=== PATIENT | male | born 1960 | race Caucasian/White ===

== ENCOUNTER → 2018-08-19 | Outpatient (CLI) | payer OTHER ==
--- NOTE | 2018-08-19 11:49 | RAD ---
Chest, 2 views, 08/19/2018: HISTORY: Shortness of breath, cough The heart size and pulmonary vascularity are normal. There are coronary artery radiopacities compatible with stents and/or calcifications. The lungs are clear. There is no evidence of pleural fluid. IMPRESSION: No acute cardiopulmonary abnormality is detected. Electronically signed by: Gerard Bhtat MD (08/19/2018 11:45 AM) [facility]
== END | disposition home or self-care (01) ==
LOC: RAD 10:59
PROVIDERS: ATTEND Family Medicine
DX: R06.02 Shortness of breath (principal); R05 Cough
CPT/HCPCS: 71046

== ENCOUNTER → 2019-09-23 | Outpatient (CLI) | payer OTHER ==
[2019-09-23 08:53] LABS: BASO % 1 % (0-3); EOS # 0.1 x10^3/uL (0.0-0.7); EOS % 2 % (0-3); HEMATOCRIT 45.9 % (39.0-53.0); LYMPH # 1.7 x10^3/uL (1.0-4.8); LYMPH % 27 % (24-48); MEAN CORPUSCULAR HEMOGLOBIN 32 pg (25-35); MEAN CORPUSCULAR HGB CONC 35 g/dL (31-37); MEAN CORPUSCULAR VOLUME 90 fL (79-100); MONO # 0.7 x10^3/uL (0.0-1.1); MONO % 11 % (0-9); NEUT # 3.8 x10^3uL (1.8-7.7); NEUT % 60 % (31-73); PLATELET COUNT 250 x10^3/uL (140-400); RED CELL DISTRIBUTION WIDTH 12.6 % (11.5-14.5); WHITE BLOOD COUNT 6.3 x10^3/uL (4.0-11.0)
[2019-09-23 08:59] LABS: BACTERIA,URINE 0 /HPF (0-FEW); BILIRUBIN,URINE NEG (NEG); CLARITY,URINE CLEAR; COLOR,URINE YELLOW; GLUCOSE,URINE NEG (NEG); NITRITE,URINE NEG (NEG); RBC,URINE RARE /HPF (0-2); SQUAMOUS EPITHELIAL CELL,UR FEW /LPF; UROBILINOGEN,URINE 0.2 mg/dL (0.2 mg/dL); WBC,URINE OCC /HPF (0-4)
[2019-09-23 09:01] LABS: ALBUMIN/GLOBULIN RATIO 1.4 (1.0-1.7); CALCIUM 8.8 mg/dL (8.5-10.1); CREATININE 1.2 mg/dL (0.7-1.3); POTASSIUM 4.3 mmol/L (3.5-5.1); TOTAL BILIRUBIN 0.6 mg/dL (0.2-1.0); TOTAL PROTEIN 6.9 g/dL (6.4-8.2)
[2019-09-23 13:13] LABS: FREE T4 0.98 ng/dL (0.76-1.46); THYROID STIM HORMONE (TSH) 1.89 uIU/mL (0.358-3.740)
== END | disposition home or self-care (01) ==
LOC: LAB 06:45
PROVIDERS: ATTEND Family Medicine
DX: I70.8 Atherosclerosis of other arteries (principal); E78.01 Familial hypercholesterolemia; R10.12 Left upper quadrant pain; R35.1 Nocturia; E03.9 Hypothyroidism, unspecified; D49.89 Neoplasm of unspecified behavior of other specified sites
CPT/HCPCS: 36415; 80053; 80061; 81001; 83690; 84153; 84439; 84443; 85025; G0103

== ENCOUNTER → 2019-11-05 | Outpatient (CLI) | payer OTHER | END | disposition home or self-care (01) | LOC: LAB 06:29 | PROVIDERS: ATTEND Internal Medicine Cardiovascular Disease | DX: Z20.828 Contact with and (suspected) exposure to other viral communicable diseases (principal) | CPT/HCPCS: U0003-CS ==